=== PATIENT | male | born 1950 | race Two or more races ===

== ENCOUNTER 2020-07-15 22:52 | Inpatient (IN) | payer MEDICAID, OTHER ==
[~2020-07-15] VITALS: Ht 170.2 cm; Wt 68.5 kg
[2020-07-15] MEDS ORDERED: MAG HYDROX/AL HYDROX/SIMETH 30 ML UDC PO ONE (23:00)
[2020-07-15] MEDS ORDERED: LIDOCAINE VISCOUS 2% UD 15 ML UDC MM ONE (23:00)
[2020-07-15] MEDS ORDERED: ONDANSETRON HCL/PF 4 MG/2 ML VIAL IVP ONE (23:00)
--- NOTE | 2020-07-15 23:00 | NUR ---
PATIENT BIBRA 839 FROM HOME C/O ABD PAIN X 6HRS, PATIENT STATES HAS HAD "GASTRITIS FOR YEARS", PAIN IS THE WORST TODAY. PATIENT IS A/OX 4, RR EVEN AND UNLABORED, STABLE ON ROOM AIR. PATIENT V/S WNL. PATIENT CONNECTED TO MAIL ORDER CLERK AND POX. WILL CONTINUE TO MONIOTR.
[2020-07-15] MEDS ORDERED: LIDOCAINE VISCOUS 2% UD 15 ML UDC ONE (23:02)
[2020-07-15] MEDS ORDERED: MAG HYDROX/AL HYDROX/SIMETH 30 ML UDC ONE (23:02)
[2020-07-15] MEDS ORDERED: ONDANSETRON HCL/PF 4 MG/2 ML VIAL ONE (23:02)
[2020-07-15 23:18] LABS: BASOPHILS % (AUTO) 0.3 % (0.0-2.0); EOSINOPHILS % (AUTO) 0.1 % (0.0-6.0); HEMATOCRIT 46 % (39-51); HEMOGLOBIN 15.5 g/dL (13.5-17.5); LYMPHOCYTES # (AUTO) 1.5 /CMM (0.8-4.8); MEAN CORPUSCULAR HGB CONC 34 g/dl (31.0-36.0); MEAN CORPUSCULAR VOLUME 89 fL (80-96); MONOCYTES # (AUTO) 0.6 /CMM (0.1-1.30); MONOCYTES % (AUTO) 4.5 % (2.0-12.0); NEUTROPHILS # (AUTO) 10.4 /CMM (1.8-8.9); NEUTROPHILS % (AUTO) 83.1 % (43.0-81.0); PLATELET COUNT (AUTO) 253 /CMM (150-450); RED BLOOD CELL COUNT(AUTO) 5.13 MIL/uL (4.5-6.0); WHITE BLOOD COUNT (AUTO) 12.5 K/uL (4.3-11.0)
[2020-07-15 23:37] LABS: CALCIUM, SERUM 9.2 mg/dL (8.5-10.1); CARBON DIOXIDE 26 mmol/L (21-32); CHLORIDE 101 mmol/L (98-107); GLUCOSE 125 mg/dL (74-106); POTASSIUM 3.5 mmol/L (3.5-5.1); SODIUM SERUM 139 mmol/L (136-145); UREA NITROGEN, BLOOD 17 mg/dL (7-18)
[2020-07-15 23:43] LABS: ALANINE AMINOTRANSFERASE 41 U/L (12-78); ALBUMIN 3.9 g/dL (3.4-5.0); ALKALINE PHOSPHATASE 62 U/L (46-116); ASPARTATE AMINOTRANSFERASE 20 U/L (15-37); BILIRUBIN,DIRECT 0.1 mg/dL (0.0-0.2); BILIRUBIN,TOTAL 0.6 mg/dL (0.2-1.0); LIPASE 114 U/L (73-393)
--- NOTE | 2020-07-16 00:20 | NUR ---
PT TO CT VIA YASMIN
[2020-07-16] MEDS ORDERED: IOHEXOL-300 100 ML VIAL IV ONE (00:22)
--- NOTE | 2020-07-16 00:36 | NUR ---
PATIENT RETURNED FROM CT
--- NOTE | 2020-07-16 02:11 | NUR ---
CALL FROM LAB. RAPID COVID NEGATIVE.
[2020-07-16] MEDS ORDERED: ONDANSETRON HCL/PF 4 MG/2 ML VIAL IVP PRN (02:30)
[2020-07-16] MEDS ORDERED: Z GUARD REMEDY 2 OZ OINT TP PRN (02:30)
[2020-07-16] MEDS ORDERED: MAGNESIUM HYDROXIDE 30 ML UDC PO PRN (02:30)
--- NOTE | 2020-07-16 03:06 | NUR ---
REPORT GIVEN TO NURSE MOHAMUD
--- NOTE | 2020-07-16 03:10 | NUR ---
ADMISSION NOTE PT ADMITTED TO [facility] UNDER [facility]NI CENTRAL SCHEDULER FOR LARGE BOWEL OBSTRUCTION FROM ER. PT HAS BEEN HAVING ABD PAIN FOR 5 MONTHS BUT PRIOR TO GOING TO ER IT WAS REALLY BAD AND WAS BIBRA TO ER. PATIENT AMBULATORY HAS LEFT AC #20 FLUSHED PATENT. PT DENIES NAUSEA AT THIS TIME REPORTS ABD PAIN RATED 4/10. PT IS PRIMARILY TURKMEN SPEAKING. PT SPEAKS LITTLE BULGARIAN ORIENTED TO ROOM THROUGH DEMONSTRATION. COMMUNICATED THAT STAFF AVAILABLE TO ASSIST. PT DEMONSTRATED UNDERSTANDING. BED DOWN LOCKED SRX2 CALL LIGHT IN REACH. WILL CONT TO MONITOR.
--- NOTE | 2020-07-16 03:14 | NUR ---
PATIENT TRANSFERRED PER [facility] PROCOTOL
[2020-07-16 03:30] VITALS: BP 160/95
[2020-07-16 04:00] VITALS: BP 160/95
--- NOTE | 2020-07-16 04:00 | NUR ---
ADMISSION ASSESSMENT; WALLISIAN DIRECTOR PEDIATRIC USED. DEANNA DIRECTOR PEDIATRIC USED FROM [facility] TO CONDUCT INTERVIEW FOR ADMISSION ASSESSMENT. #[id number]. PATIENT HAD LARGE SOME OF MONEY IN POSESSION DECLINED TO PUT IN SAFE RECORDED ON BELONGINGS SHEET ADVISED TO CALL IN AM TO TAKE IT HOME. POC REVIEWED QUESTIONS CONCERNS ADDRESSED. PT VERBALIZED UNDERSTANDING. INFORMED DIRECTOR PEDIATRIC AVAILABLE UPON REQUEST. DEVICE IS BEING STORED IN NURSING [facility].
[2020-07-16] MEDS: HYDROMORPHONE 1 MG/1 ML DISP.SYRIN IV PRN (04:40)
[2020-07-16] MEDS: IV NS 0.9% 1,000 ML IV PRN ×2 (04:40→18:02)
[2020-07-16] MEDS ORDERED: FAMO20TA8 PO (05:45)
[2020-07-16] MEDS ORDERED: AMLO2.5T4 PO (05:45)
[2020-07-16] MEDS ORDERED: SUCR1ORA15 PO (05:45)
[2020-07-16] MEDS ORDERED: BUSP5TAB3 PO (05:45)
--- NOTE | 2020-07-16 05:58 | NUR ---
CONTACTED [facility] REGARDING MED REC. PT CONCERNED ABOUT BP IN 160'S. FOUND ATTEMPTING TO TAKE HOME MEDICATIONS. NEW ORDER FOR NORVASC 2.5 MG ONE TIME ORDERED. HOME MED REC UPDATED AND TO BE ENDORSED TO AM RN FOR DAY SHIFT DOCTOR TO REVIEW. MEDICATIONS REMOVED FROM PATIENT BEDSIDE AND TO BE STORED AT PHARMACY PER PROTOCOL.
[2020-07-16] MEDS ORDERED: AMLODIPINE BESYLATE 2.5 MG TABLET PO ONE (06:00)
--- NOTE | 2020-07-16 07:30 | NUR ---
RN MS NOTES PT IN BED, AWAKE, ALERT AND ORIENTED, AMERICAN SPEAKING BUT ABLE TO UNDERSTAND SIMPLE VATICAN CITIZEN, NO COMPLAINT OF PAIN AT THIS TIME, RESPIRATIONS NORMAL, SEEN AND EXAMINED BY DR. EASTMAN, NEEDS ATTENDED.
[2020-07-16] MEDS ORDERED: OMEP20CA15 PO (07:57)
[2020-07-16 08:00] VITALS: BP 127/80
[2020-07-16] MEDS: PANTOPRAZOLE 40 MG VIAL IV SCH (09:26)
[2020-07-16] MEDS: ENOXAPARIN SODIUM 40 MG/0.4 ML DISP.SYRIN SQ SCH (09:33)
[2020-07-16 16:00] VITALS: BP 132/82
--- NOTE | 2020-07-16 18:43 | NUR ---
RN MS NOTES PT IN BED, AWAKE, ALERT AND VERBALLY RESPONSIVE, NO COMPLAINT AT THIS TIME, NO COMPLAINT OF PAIN OR ANY DISCOMFORT, IV FLUIDS INFUSING WELL, CALL LIGHT WITHIN REACH, PT FOR HERNIA REPAIR SURGERY TOMORROW, PROCEDURE EXPLAINED TO PT WITH HIS DAUGHTER DARIUS INTERPRETING, CONSENTS SIGNED BY PT, KEPT PT WARM AND COMFORTABLE IN BED.
--- NOTE | 2020-07-16 19:35 | NUR ---
MSRN FULLY AWAKE. PAINFREE. DENIES ANY DISCOMFORTS. NO NEEDS FOR NOW. PRESENT IVF INFUSING WELL. WILL KEEP NPO POST MIDNIGHT FOR SURGERY IN AM. PATIENT REMINDED, WELL UNDERSTOOD. TO CONTINUE.
[2020-07-16 20:00] VITALS: BP 137/80
[2020-07-17] VITALS (8 sets, daily range): BP systolic 131–174; BP diastolic 78–93
--- NOTE | 2020-07-17 00:30 | NUR ---
MSRN SLEEPING EASILY AWAKENED. KEPT NPO FOR SURGERY AT 1100 AM TODAY. NO COMPLAINTS MADE. PRESENT IVF CONTINUED.;
[2020-07-17 03:30] LABS: BILIRUBIN,URINE NEGATIVE (NEGATIVE); COLOR,URINE YELLOW (YELLOW); LEUKOCYTE ESTERASE ,URINE NEGATIVE (NEGATIVE); NITRITE, URINE NEGATIVE (NEGATIVE); PH,URINE 6.5 (5.0-8.0); PROTEIN,URINE NEGATIVE (NEGATIVE); UGLUCOSE NEGATIVE (NEGATIVE); UROBILINOGEN,URINE 0.2 EU/dL (0.2)
[2020-07-17 04:06] LABS: BACTERIA,URINE None seen /HPF (None Seen); MUCUS,URINE Moderate /LPF (None Seen); RBC,URINE 0-2 /HPF (0-2); SQUAMOUS EPITHELIAL CELL,UR Few /HPF (None Seen); WBC,URINE 0-2 /HPF (0-3)
--- NOTE | 2020-07-17 05:31 | NUR ---
MSRN REMAINS UNCHANGED. NO NEEDS MADE.
[2020-07-17 06:10] LABS: BASOPHILS % (AUTO) 0.5 % (0.0-2.0); EOSINOPHILS % (AUTO) 0.8 % (0.0-6.0); HEMATOCRIT 43 % (39-51); HEMOGLOBIN 14.4 g/dL (13.5-17.5); LYMPHOCYTES # (AUTO) 2.1 /CMM (0.8-4.8); LYMPHOCYTES % (AUTO) 28.4 % (20.0-44.0); MEAN CORPUSCULAR HGB CONC 34 g/dl (31.0-36.0); MEAN CORPUSCULAR VOLUME 89 fL (80-96); MONOCYTES # (AUTO) 0.5 /CMM (0.1-1.30); MONOCYTES % (AUTO) 7.2 % (2.0-12.0); NEUTROPHILS # (AUTO) 4.6 /CMM (1.8-8.9); NEUTROPHILS % (AUTO) 63.1 % (43.0-81.0); PLATELET COUNT (AUTO) 238 /CMM (150-450); RED BLOOD CELL COUNT(AUTO) 4.78 MIL/uL (4.5-6.0); WHITE BLOOD COUNT (AUTO) 7.4 K/uL (4.3-11.0)
[2020-07-17] MEDS: IV NS 0.9% 1,000 ML IV PRN ×2 (06:25→23:18)
[2020-07-17 06:36] LABS: CALCIUM, SERUM 8.5 mg/dL (8.5-10.1); CREATININE 1.1 mg/dL (0.6-1.3); MAGNESIUM 2.2 mg/dL (1.8-2.4); PHOSPHORUS 2.7 mg/dL (2.5-4.9); POTASSIUM 3.7 mmol/L (3.5-5.1)
--- NOTE | 2020-07-17 06:55 | NUR ---
MSRN FULLY AWAKE. NPO MAINTAINED.
--- NOTE | 2020-07-17 08:00 | NUR ---
MS/RN OPENING NOTES RECEIVED PATIENT IN BED, AWAKE AND ORIENTED X4. ABLE TO MAKE NEEDS KNOWN. GAMBIAN SPEAKING BUT CAN UNDERSTAND LITTLE PRYDEINIG. NO SOB NOTED. ON ROOM AIR. NO COMPLAINTS OF PAIN OR ANY DISCOMFORT. IV ACCESS ON LEFT AC #20 IS INTACT AND PATENT WITH NS AT 75 ML/HR INFUSING WELL. SAFETY PRECAUTIONS IN PLACE. CALL LIGHT WITHIN REACH. ON NPO FOR HERNIA REPAIR SURGERY TODAY. ALL CONSENTS SIGNED BY PATIENT. WILL CONTINUE TO MONITOR.
[2020-07-17] MEDS: ENOXAPARIN SODIUM 40 MG/0.4 ML DISP.SYRIN SQ SCH (08:27)
[2020-07-17] MEDS: PANTOPRAZOLE 40 MG VIAL IV SCH (08:27)
--- NOTE | 2020-07-17 08:28 | NUR ---
WITHHELD LOVENOX 40MG/0.4ML SUBCUTANEOUS INJECTION DUE TO PATIENT HAVING A SURGERY TODAY. WILL CONTINUE TO MONITOR PATIENT.
--- NOTE | 2020-07-17 10:06 | NUR ---
PATIENT GOT PICKED UP BY OR STAFFS FOR SURGERY. PATIENT IS ALERT AND ORIENTEDX4, ABLE TO MAKE NEEDS KNOWN. NO SOB NOTED, NO DISCOMFORTS REPORTED.
[2020-07-17] MEDS ORDERED: FENTANYL PF 100MCG/2ML AMPUL ONE ×2 (10:13→13:23)
[2020-07-17] MEDS ORDERED: HYDROMORPHONE INJ 2 MG/ML DISP.SYRIN ONE (10:14)
[2020-07-17] MEDS ORDERED: LIDOCAINE HCL/MPF 1% 30 ML VIAL IJ ONE (10:19)
[2020-07-17] MEDS ORDERED: BUPIVACAINE MPF W/EPI 0.25% 30 ML VIAL ONE (10:19)
[2020-07-17] MEDS ORDERED: BACITRACIN ZINC OINT (15 GM) 15 GM TUBE TP ONE (12:39)
--- NOTE | 2020-07-17 14:23 | NUR ---
RN MS NOTES RECEIVED PT FROM O.R. STAFF VIA BETTINA, PT IS AWAKE, ALERT AND ORIENTED, NO COMPLAINT AT THIS TIME, RESPIRATIONS NORMAL, POST OP ORDERS RECEIVED, NOTED AND CARRIED OUT, DRESSING TO LEFT INGUINAL CLEAN, DRY AND INTACT, VITAL SIGNS TAKEN AND RECORDED, WILL CONTINUE TO MONITOR.
[2020-07-17] MEDS: HYDROMORPHONE 1 MG/1 ML DISP.SYRIN IV PRN ×2 (15:11→23:20)
--- NOTE | 2020-07-17 19:24 | NUR ---
MS/RN CLOSING NOTES PATIENT IN BED, AWAKE AND ORIENTED X4. ABLE TO MAKE NEEDS KNOWN. ANDORRAN SPEAKING BUT CAN UNDERSTAND LITTLE TAMAZIGHT. NO SOB NOTED. ON ROOM AIR. NO COMPLAINTS OF PAIN OR ANY DISCOMFORT. S/P OPEN HERNIA REPAIR OF INCARCERATED LEFT INGUINAL HERNIA + EGD AND BIOPSY. ADVANCE DIET TOLERATED STARTING TOMORROW. IV ACCESS ON LEFT AC #20 IS INTACT AND PATENT WITH NS AT 75 ML/HR INFUSING WELL. SAFETY PRECAUTIONS IN PLACE. CALL LIGHT WITHIN REACH. WILL ENDORSE TO THE NEXT SHIFT FOR CONTINUITY OF CARE.
--- NOTE | 2020-07-17 19:45 | NUR ---
MSRN RESTING QUIETLY. NO N/V ABLE TO TOLERATE CLEAR LQUIDS. PRESENT IVF INFUSING WELL. REMINDED TO CALL STAFF FOR ANY ASSITANCE OR DISCOMFORTS. SAFETY PRECAUTIONS EMPHASIZED, APPEARS TO UNDERSTAND. CLOSELY WATCHED.
--- NOTE | 2020-07-17 22:00 | NUR ---
MSRN ASKED FOR FOOD, JELLO ONLY GIVEN NO N/V. DID NOT FINISH APPLE JUICE. WILL ADVANCE DIET ZIGGY FOR BREAKFAST.
--- NOTE | 2020-07-17 23:10 | NUR ---
MSRN\ SEEN MOANING APPEARS TO BE IN SEVERE PAIN REFUSED PAIN MED. IVF CHANGED, REFUSED INFUSION. FINALLY AGREED DILAUDED ADM AT 2320 IVP. BUT STILL REFUSED IVF. NEEDS CLOSER OBSERVATION. LEFT GROIN DRESSING WITH SLIGHT BLOODY DRAINAGE COVERED WITH OPSITE.CLOSELY WATCHED
[2020-07-18 06:37] LABS: BASOPHILS % (AUTO) 0.2 % (0.0-2.0); EOSINOPHILS % (AUTO) 0.2 % (0.0-6.0); HEMATOCRIT 46 % (39-51); HEMOGLOBIN 15.7 g/dL (13.5-17.5); LYMPHOCYTES # (AUTO) 1.3 /CMM (0.8-4.8); LYMPHOCYTES % (AUTO) 10.9 % (20.0-44.0); MEAN CORPUSCULAR HGB CONC 34 g/dl (31.0-36.0); MEAN CORPUSCULAR VOLUME 89 fL (80-96); MONOCYTES # (AUTO) 0.9 /CMM (0.1-1.30); MONOCYTES % (AUTO) 7.7 % (2.0-12.0); NEUTROPHILS # (AUTO) 9.5 /CMM (1.8-8.9); PLATELET COUNT (AUTO) 261 /CMM (150-450); RED BLOOD CELL COUNT(AUTO) 5.14 MIL/uL (4.5-6.0); WHITE BLOOD COUNT (AUTO) 11.7 K/uL (4.3-11.0)
--- NOTE | 2020-07-18 06:40 | NUR ---
MSRN SLEEPS ON/OFF. STILL REFUSED IVF. REFUSED TO TAKE ANY PAIN MED OF THIS TIME
[2020-07-18 07:09] LABS: CALCIUM, SERUM 9.2 mg/dL (8.5-10.1); POTASSIUM 3.5 mmol/L (3.5-5.1)
--- NOTE | 2020-07-18 07:32 | NUR ---
MS RN OPENING NOTES RECEIVED PATIENT AWAKE IN BED IN NO ACUTE SIGNS OF DISTRESS. A/O X4. ABLE TO MAKE NEEDS KNOWN. IVORIAN SPEAKING BUT UNDERSTAND LITTLE ICELANDIC, DENIES PAIN OR ANY DISCOMFORTS AT THIS TIME. ON ROOM AIR, BREATHING EVEN AND UNLABORED. IV ACCESS ON LAC G#20 INTACT AND PATENT, PT REMAINS REFUSING IVF. SAFETY PRECAUTIONS IN PLACE: BED IN LOWEST LOCKED POSITION, SR UP X2 AND CALL LIGHT WITHIN REACH. WILL CONTINUE TO MONITOR.
[2020-07-18 08:00] VITALS: BP 145/89
[2020-07-18] MEDS ORDERED: CLONIDINE HCL 0.2MG/24H PTWK 1 EA PATCH TD SCH (08:00)
[2020-07-18] MEDS: SUCRALFATE 1 G TABLET PO SCH ×4 (08:35→22:23)
[2020-07-18] MEDS: PANTOPRAZOLE 40 MG VIAL IV SCH (08:36)
[2020-07-18] MEDS: ENOXAPARIN SODIUM 40 MG/0.4 ML DISP.SYRIN SQ SCH (09:00)
--- NOTE | 2020-07-18 09:05 | NUR ---
RN NOTES PT REFUSED HIS LOVENOX 40MG/0.4ML THIS MORNING DESPITE EXPLAINING RISKS AND BENEFITS. PT'S DAUGHTER ON THE PHONE SAME EXPLAINED TO PT BUT STILL REFUSED. WILL CONTINUE TO MONITOR.
--- NOTE | 2020-07-18 10:42 | NUR ---
RN NOTES PT TOLERATED FULL LIQUIDS DIET AT BREAKFAST WITH NO C/O PAIN, N & V. DIET ADVANCED TO SOFT DIET. WILL CONTINUE TO MONITOR PT.
--- NOTE | 2020-07-18 18:39 | NUR ---
MS RN CLOSING NOTES RECEIVED PATIENT AWAKE IN BED IN NO ACUTE SIGNS OF DISTRESS. A/O X4. ABLE TO MAKE NEEDS KNOWN. VINCENTIAN SPEAKING BUT UNDERSTAND LITTLE PAKISTANI, DENIES PAIN OR ANY DISCOMFORTS AT THIS TIME. ON ROOM AIR, BREATHING EVEN AND UNLABORED. IV ACCESS ON LAC G#20 INTACT AND PATENT, PT REMAINS REFUSING IVF. SAFETY PRECAUTIONS IN PLACE: BED IN LOWEST LOCKED POSITION, SR UP X2 AND CALL LIGHT WITHIN REACH. WILL CONTINUE TO MONITOR.
[2020-07-18 20:00] VITALS: BP 135/86
--- NOTE | 2020-07-18 20:05 | NUR ---
MS RN OPENING NOTES PATIENT WAS SEEN AWAKE LYING IN BED. PATIENT IS ALERT AND ORIENTED X4. PATIENT IS ABLE TO MAKE HIS NEEDS KNOWN. PATIENT IS ON ROOM AIR WITH NO RESPIRATORY DISTRESS NOTED. PATIENT HAS AN IV ACCESS ON HIS LEFT AC GAUGE#20. SAFETY PRECAUTIONS IN PLACE: BED LOCKED, SIDE RAILS UP, AND CALL LIGHT WITHIN REACH OF THE PATIENT. WILL CONTINUE TO MONITOR THE PATIENT.
--- NOTE | 2020-07-19 07:03 | NUR ---
MS RN NOTES PATIENT'S IV ACCESS ON HIS LEFT AC GAUGE #20 WAS REMOVED DUE TO IT HURTING THE PATIENT. PATIENT HAS A NEW IV ACCESS ON HIS LEFT FOREARM GAUGE #22 WHICH IS CURRENTLY RUNNING NORMAL SALINE.
--- NOTE | 2020-07-19 07:07 | NUR ---
MS RN CLOSING NOTES PATIENT WAS SEEN AWAKE LYING IN BED. PATIENT IS ALERT AND ORIENTED X4. PATIENT IS ABLE TO MAKE HIS NEEDS KNOWN. PATIENT IS ON ROOM AIR WITH NO RESPIRATORY DISTRESS NOTED. PATIENT HAS AN IV ACCESS ON HIS LEFT FOREARM GAUGE#22 WHICH IS RUNNING NORMAL SALINE. SAFETY PRECAUTIONS IN PLACE: BED LOCKED, SIDE RAILS UP X2, AND CALL LIGHT WITHIN REACH OF THE PATIENT. ENDORSED CARE TO DAY SHIFT NURSE.
--- NOTE | 2020-07-19 07:27 | NUR ---
MS RN OPENING NOTES PATIENT WAS SEEN AWAKE LYING IN BED. PATIENT IS ALERT AND ORIENTED X4. PATIENT IS ABLE TO MAKE HIS NEEDS KNOWN. PATIENT IS ON ROOM AIR WITH NO RESPIRATORY DISTRESS NOTED. PATIENT HAS AN IV ACCESS ON HIS LEFT FA 22G SAFETY PRECAUTIONS IN PLACE: BED LOCKED, SIDE RAILS UP, AND CALL LIGHT WITHIN REACH OF THE PATIENT.
[2020-07-19] MEDS: SUCRALFATE 1 G TABLET PO SCH ×3 (07:32→16:34)
[2020-07-19 08:00] VITALS: BP 131/77
[2020-07-19] MEDS: PANTOPRAZOLE 40 MG VIAL IV SCH (08:08)
[2020-07-19] MEDS: ENOXAPARIN SODIUM 40 MG/0.4 ML DISP.SYRIN SQ SCH (08:09)
[2020-07-19 16:00] VITALS: BP 142/90
--- NOTE | 2020-07-19 18:39 | NUR ---
MS RN CLOSING NOTES PATIENT WAS SEEN AWAKE LYING IN BED. PATIENT IS ALERT AND ORIENTED X4. PATIENT IS ABLE TO MAKE HIS NEEDS KNOWN. PATIENT IS ON ROOM AIR WITH NO RESPIRATORY DISTRESS NOTED. PATIENT HAS AN IV ACCESS ON HIS LEFT FA 22G SAFETY PRECAUTIONS IN PLACE: BED LOCKED, SIDE RAILS UP, AND CALL LIGHT WITHIN REACH OF THE PATIENT.
--- NOTE | 2020-07-19 21:00 | NUR ---
MS RN NOTES CALLED DR REID,SPOKE TO PATIENT WITH DAUGHTER AT BEDSIDE.
--- NOTE | 2020-07-19 21:20 | NUR ---
MS RN NOTES D/C HOME IN STABLE CONDITION,ACCOMPANIED BY DAUGHTER WITH PRIVATE TRANSPORTATION.
== END 2020-07-19 21:20 | disposition home or self-care (01) | DRG 228 ==
LOC: ER 22:54 → MED 07-16 02:54
PROVIDERS: ATTEND Nurse Practitioner Acute Care
PROC: 0YQ60ZZ Repair Left Inguinal Region, Open Approach (ICD-10-PCS; principal; 2020-07-17)
PROC: 0DB78ZX Excision of Stomach, Pylorus, Via Natural or Artificial Opening Endoscopic, Diagnostic (ICD-10-PCS; 2020-07-17)
DX: K40.30 Unilateral inguinal hernia, with obstruction, without gangrene, not specified as recurrent (principal); D72.829 Elevated white blood cell count, unspecified; I10 Essential (primary) hypertension; Z87.11 Personal history of peptic ulcer disease; Z20.822 Contact with and (suspected) exposure to COVID-19; K29.70 Gastritis, unspecified, without bleeding; K27.9 Peptic ulcer, site unspecified, unspecified as acute or chronic, without hemorrhage or perforation; K29.80 Duodenitis without bleeding; G89.29 Other chronic pain; Z86.19 Personal history of other infectious and parasitic diseases
CPT/HCPCS: 36415; 71045-TC; 80048-TC; 80061-TC; 80076-TC; 81001; 83690-TC; 83735-TC; 84100-TC; 84484-TC; 85025-TC; 85610-TC; 85730-TC; 86850-TC; 87081-TC; 88302-TC; 88305-TC; 88313-TC; 88342; 93307-TC; C9113; C9803; G0378; J0690; J1170; J1650; J2405; J2704; J3010; J3490; J7030; Q9967